=== PATIENT | male | born 1980 | race Caucasian/White ===

== ENCOUNTER 2019-03-23 11:25 | Emergency (ER) | payer SELFPAY ==
[~2019-03-23] VITALS: Ht 177.8 cm; Wt 71.7 kg
[2019-03-23 11:29] VITALS: Ht 177.8 cm; Wt 71.7 kg
[2019-03-23 12:52] LABS: BASOPHIL % 0.5 % (0-2); PLATELET COUNT 320 x10^3mcL (130-400); RED CELL DISTRIBUTION WIDTH 14.1 % (11.5-14.5)
[2019-03-23 13:31] LABS: ALKALINE PHOSPHATASE 75 U/L (46-116); ALT/SGPT 22 U/L (16-63); AST/SGOT 4 U/L (15-37); BILIRUBIN TOTAL 0.35 mg/dL (0.20-1.00); CARBON DIOXIDE 29.1 mmol/L (21-32); CHLORIDE SERUM 104 mmol/L (98-107); CREATININE SERUM 1.3 mg/dL (0.7-1.3); GFR1 > 60 mL/min; GLUCOSE SERUM 119 mg/dL (74-106); POTASSIUM SERUM 3.8 mmol/L (3.5-5.1); SODIUM SERUM 141 mmol/L (136-145); TOTAL PROTEIN, SERUM 7.2 g/dL (6.4-8.2)
[2019-03-23 15:18] VITALS: BP 150/88
== END 2019-03-23 15:18 | disposition home or self-care (01) ==
LOC: ED 11:25
PROVIDERS: Emergency Medicine
DX: N20.0 Calculus of kidney (principal); R31.9 Hematuria, unspecified; Z87.442 Personal history of urinary calculi; Z98.890 Other specified postprocedural states
CPT/HCPCS: J1885; J7030

== ENCOUNTER 2019-12-03 14:24 | Emergency (ER) | payer OTHER ==
[~2019-12-03] VITALS: Ht 177.8 cm; Wt 78.5 kg
[2019-12-03 15:25] VITALS: BP 135/82; Ht 177.8 cm; Wt 78.5 kg
== END 2019-12-03 17:27 | disposition home or self-care (01) ==
LOC: ED 14:24
DX: S51.811A Laceration without foreign body of right forearm, initial encounter (principal); Z87.442 Personal history of urinary calculi; W26.8XXA Contact with other sharp object(s), not elsewhere classified, initial encounter; Y93.89 Activity, other specified; Y92.89 Other specified places as the place of occurrence of the external cause; Y99.8 Other external cause status
CPT/HCPCS: 90715; J2001

== ENCOUNTER 2020-02-23 02:35 | Emergency (ER) | payer OTHER ==
[~2020-02-23] VITALS: Ht 177.8 cm; Wt 74.8 kg
[2020-02-23 02:42] VITALS: Ht 177.8 cm; Wt 74.8 kg
[2020-02-23 03:44] LABS: CALCIUM 8.4 mg/dL (8.5-10.1); CARBON DIOXIDE 25.9 mmol/L (21-32); CHLORIDE SERUM 106 mmol/L (98-107); CREATININE SERUM 0.9 mg/dL (0.7-1.3); GFR1 > 60 mL/min; GLUCOSE SERUM 103 mg/dL (74-106); POTASSIUM SERUM 3.7 mmol/L (3.5-5.1); SODIUM SERUM 138 mmol/L (136-145)
[2020-02-23 03:47] LABS: ALBUMIN 3.7 g/dL (3.4-5.0); ALKALINE PHOSPHATASE 81 U/L (46-116); ALT/SGPT 39 U/L (16-63); AST/SGOT 31 U/L (15-37); BILIRUBIN TOTAL 0.4 mg/dL (0.20-1.00); TOTAL PROTEIN, SERUM 6.4 g/dL (6.4-8.2)
[2020-02-23 04:00] LABS: BASOPHIL % 0.4 % (0-2); PLATELET COUNT 285 x10^3mcL (130-400); RED CELL DISTRIBUTION WIDTH 13.9 % (11.5-14.5)
[2020-02-23 05:14] VITALS: BP 112/70
== END 2020-02-23 05:14 | disposition home or self-care (01) ==
LOC: ED 02:35
PROVIDERS: Emergency Medicine
DX: S63.270A Dislocation of unspecified interphalangeal joint of right index finger, initial encounter (principal); S62.604A Fracture of unspecified phalanx of right ring finger, initial encounter for closed fracture; W10.9XXA Fall (on) (from) unspecified stairs and steps, initial encounter; Y93.89 Activity, other specified; Y92.89 Other specified places as the place of occurrence of the external cause; Y99.8 Other external cause status
CPT/HCPCS: 90715; G0480; J1885; J2405; J3010; Q0092